=== PATIENT | female | born 1940 ===

== ENCOUNTER 2017-11-15 10:16 | Emergency (ER) | payer BC, MEDICARE ==
[2017-11-15] MEDS ORDERED: Sodium Chloride 0.9% 1,000 ML IV ONE (11:31)
[2017-11-15 11:59] LABS: BASO # 0.1 K/uL (0.0-0.2); BASO % 1.1 % (0.0-2.0); EOS # 0.2 K/uL (0.0-0.7); EOS % 3.5 % (0.0-4.0); HEMOGLOBIN 10.2 g/dL (11.0-16.0); LYMPH # 1.4 K/uL (1.0-4.3); LYMPH % 22.9 % (20.0-40.0); MEAN CELL VOLUME 86.8 fL (81.0-99.0); MEAN CORPUSCULAR HEMOGLOBIN 29.2 pg (27.0-31.0); MEAN CORPUSCULAR HGB CONC 33.6 g/dL (33.0-37.0); MEAN PLATELET VOLUME 9.7 fL (7.2-11.7); MONO # 0.7 K/uL (0.0-0.8); MONO % 12.4 % (0.0-10.0); NEUT # 3.6 K/uL (1.8-7.0); NEUT % 60.1 % (50.0-75.0); RBC 3.51 Mil/uL (3.80-5.20); RED CELL DISTRIBUTION WIDTH 14.3 % (11.5-14.5); WHITE BLOOD COUNT 5.9 K/uL (4.8-10.8)
[2017-11-15 12:16] LABS: ALB/GLOB RATIO 1.7 (1.0-2.1); ALBUMIN 4.4 g/dL (3.5-5.0); CALCIUM 9.5 mg/dl (8.6-10.4)
--- NOTE | 2017-11-15 12:18 | RAD ---
Date of service: 11/15/2017 HISTORY: pain COMPARISON: 08/05/2017 FINDINGS: BOWEL: Normal. No obstruction. No free air. There is a calcification in the left upper quadrant of the abdomen that does not appear to pertain to the left kidney but is more laterally situated. Possible calcified splenic granuloma. No change from prior. BONES: Normal. OTHER FINDINGS: None. IMPRESSION: No active disease.
[2017-11-15 12:34] LABS: SQUAMOUS EPITHIAL 3 /hpf (0-5); URINE BILIRUBIN 1+ (NEGATIVE); URINE BLOOD NEGATIVE (NEGATIVE); URINE CLARITY Clear (Clear); URINE COLOR Yellow (YELLOW); URINE GLUCOSE (UA) NORMAL (Normal); URINE LEUKOCYTE ESTERASE 2+ Leu/uL (Negative); URINE PROTEIN NEGATIVE (NEGATIVE)
[2017-11-15] MEDS ORDERED: Sodium Chloride 0.9% 1,000 ML ONE ×2 (12:54→13:34)
[2017-11-15] MEDS ORDERED: Magnesium Hydroxide Susp 30 ml UD PO ONE (13:02)
--- NOTE | 2017-11-15 13:02 | C.PDOC ---
History Of Present Illness 77-year-old female, presents to the emergency department for evaluation of diffuse abdominal cramping pain intermittent for the past 5-6 days. Pain is associated with constipation and nausea. Pt also admits, discomfort on urination for past few days. Otherwise, pt denies change in appetite, fever, chills, recent illness or abx use, CP, SOB, dyspnea, diaphoresis, palpitation, vomiting, melene, hematoschezia, denies back pain. Ambulate to Ed for evaluation , not in any apparent distress. Time Seen by Provider: 11/15/17 11:17 Chief Complaint (Nursing): Abdominal Pain History Per: Patient History/Exam Limitations: no limitations Onset/Duration Of Symptoms: Days (5) Current Symptoms Are (Timing): Still Present Severity: Moderate Location Of Pain/Discomfort: Diffuse Associated Symptoms: Nausea, Constipation Past Medical History Reviewed: Historical Data, Nursing Documentation, Vital Signs Vital Signs: Last Vital Signs Temp 98.6 F 11/15/17 14:52 Pulse 52 L 11/15/17 14:52 Resp 20 11/15/17 14:52 BP 134/74 11/15/17 14:52 Pulse Ox 98 11/15/17 14:52 - Medical History PMH: HTN, Hypercholesterolemia, Osteoporosis Surgical History: Coronary Stent (angioplasty) Family History: States: No Known Family Hx - Social History Hx Tobacco Use: No Hx Alcohol Use: No Hx Substance Use: No - Immunization History Hx Tetanus Toxoid Vaccination: No Hx Influenza Vaccination: Yes Hx Pneumococcal Vaccination: Yes Review Of Systems Constitutional: Negative for: Fever, Chills Gastrointestinal: Positive for: Nausea, Abdominal Pain, Constipation. Negative for: Vomiting, Diarrhea Genitourinary: Negative for: Dysuria, Frequency Musculoskeletal: Negative for: Back Pain Neurological: Negative for: Weakness, Headache, Dizziness Physical Exam - Physical Exam Appears: Well, Non-toxic, No Acute Distress Skin: Normal Color, Warm, Dry Head: Atraumatic, Normacephalic Eye(s): bilateral: PERRL Nose: No Flaring Oral Mucosa: Moist Lips: Normal Appearing Throat: No Erythema, No Drooling Neck: Normal ROM, Trachea Midline, Supple Chest: Symmetrical Cardiovascular: Rhythm Regular, No Murmur, No JVD Respiratory: No Accessory Muscle Use, No Stridor, No Wheezing Gastrointestinal/Abdominal: Bowel Sounds (normal), Soft, Tenderness (Mild Suprapubic), No Distention, No Guarding, No Rebound Back: No CVA Tenderness Extremity: Normal ROM, No Pedal Edema, No Deformity Neurological/Psych: Oriented x3, Normal Speech ED Course And Treatment - Laboratory Results Result Diagrams: 11/15/17 11:54 11/15/17 11:54 Lab Interpretation: No Changes Compared To Prior Results O2 Sat by Pulse Oximetry: 100 Pulse Ox Interpretation: Normal - Other Rad Abd xray X-Ray: Read By Radiologist Interpretation: pprover : DR. Cedillo, Moy GALLARDO. Approver2 : Report Date : 11/15/2017 12:16:38. My Comment : . Date of service: 11/15/2017. HISTORY : pain. COMPARISON: 08/05/2017. FINDINGS: BOWEL: Normal. No obstruction. No free air. There is a calcification in the left upper quadrant of the abdomen that does not appear to pertain to the left kidney but is more laterally situated. Possible calcified splenic granuloma. No change from prior. BONES: Normal. OTHER FINDINGS: None. IMPRESSION: No active disease. Progress Note: Pt was OBS in Ed for 5 hours and remained stable. Pt reports, " fells better" after ED treatment. AFter ED tx, pt was able to have BM with large amount of watery stool. Afebrile, hemodynamicaly stable. Non-toxic. Tolerate Po wel floyd ED. neck: Supple, (-) JVD, (-) carotid bruits B/L. Lungs: CTA B/L, BS equal B/L. CVS: (+)S1S2, reg. ABd: benign, (-) guaridng, (-) rebound, (-) localize dtenderness. back: (-) CVA tenderness. Neuorlogicaly intact. Blood work review and appears stable compare to previous ED visits, no new acute changes. Abd xray review (-) air-fluid level, no acute pathology. UA review and c/w UTI. Case discussed, results review with pt's PMD Dr. Galvan , discharge with outpt f/u recommend at this time. Results review with pt as well. Pt understand and agrees with plan, stable for discharge now. Disposition Counseled Patient/Family Regarding: Studies Performed, Diagnosis, Need For Followup, Rx Given - Disposition Referrals: Asif Perkins MD [Medical Doctor] - Disposition: HOME/ ROUTINE Disposition Time: 14:55 Condition: STABLE Additional Instructions: Encourage fluids Fiber-full diet take medication as prescribed Follow up with PMD, GI in 2-3 days for re-evaluation. return to Ed if any worsening or new changes. Prescriptions: Cefpodoxime [Vantin] 400 mg PO BID #28 tab Polyethylene Glycol 3350 [Miralax] 17 gm PO DAILY #1 bottle Instructions: Urinary Tract Infections in Adults, Constipation, Adult (DC) Forms: [facility] (Slovak) - Clinical Impression Clinical Impression: Abdominal pain, Constipation, UTI (urinary tract infection) - Scribe Statement The provider has reviewed the documentation as recorded by the Scribe (Luanne Denney) All medical record entries made by the Scribe were at my direction and personally dictated by me. I have reviewed the chart and agree that the record accurately reflects my personal performance of the history, physical exam, medical decision making, and the department course for this patient. I have also personally directed, reviewed, and agree with the discharge instructions and disposition.
[2017-11-15] MEDS ORDERED: Magnesium Hydroxide Susp 30 ml UD ONE (13:29)
[2017-11-15] MEDS ORDERED: cefTRIAXone IV 1 gm in Dextros 50 ML IVPB ONE (13:39)
[2017-11-15 14:54] VITALS: RESP 20
[2017-11-15 15:49] VITALS: BP 165/80; PULSE 54; TEMP 98.8; O2SAT 95
== END 2017-11-15 16:22 | disposition home or self-care (01) ==
LOC: C.ER 10:16
DX: K59.00 Constipation, unspecified (principal); N39.0 Urinary tract infection, site not specified; R10.9 Unspecified abdominal pain
CPT/HCPCS: 74019; 80053; 81001; 83690; 85025; 87086; 87181; 96361; 96365; 96375; 99285; J0696; J2405; J7030

== ENCOUNTER 2018-01-04 07:16 | Day surgery (SDC) | payer BC, MEDICARE ==
[2017-12-31 11:09] VITALS: BMI 26.5
[2018-01-04] MEDS ORDERED: Lactated Ringer's 500 ML IV ONE (09:10)
--- NOTE | 2018-01-04 09:11 | CP.SDSHP ---
Same Day Surgery H & P - History Proposed Procedure: colonoscopy Pre-Op Diagnosis: h/o colon polyps - Previous Medical/Surgical History Cardiac: Hypertension, ASHD/CAD, Other (hyperlipidemia) Misc: Other (SLE, Osteoporosis, Colon polyps, diverticulitis) Previous Surgical History: PTCA with stent-2007. R shoulder surgery - Allergies Allergies: Allergies aspirin Adverse Reaction (Severe, Verified 01/04/18 08:06) VOMITING - Physical Exam Vital Signs: Vital Signs 01/04/18 08:00 Temperature 97.8 F Pulse Rate 54 L Respiratory 19 Rate Blood Pressure 151/71 H O2 Sat by Pulse 99 Oximetry Mental Status: Alert & Oriented x3 Neuro: WNL Heart: WNL Lungs: WNL GI: WNL - Impression Impression: h/o colon polyps Pt. Evaluated Today:Candidate for Anesthesia & Procedure: Yes - Date & Time Date: 01/04/18 Time: 09:11 Short Stay Discharge - Short Stay Discharge Admitting Diagnosis/Reason for Visit: ABDOMINAL DISTENSION HX COLONIC POLYPS CHRONIC ISC Disposition: HOME/ ROUTINE
[2018-01-04] MEDS ORDERED: Propofol 10 mg/ml Inj (20 ML) ONE ×2 (09:17)
[2018-01-04 09:53] VITALS: TEMP 97
[2018-01-04 10:19] VITALS: O2SAT 99
[2018-01-04 10:50] VITALS: BP 187/81; PULSE 51; RESP 16
== END 2018-01-04 10:45 | disposition home or self-care (01) ==
LOC: C.ENDO 07:16
PROVIDERS: ATTEND Internal Medicine Gastroenterology
DX: R14.0 Abdominal distension (gaseous) (principal); Z86.010 Personal history of colon polyps; I25.9 Chronic ischemic heart disease, unspecified; E78.5 Hyperlipidemia, unspecified; I10 Essential (primary) hypertension; I25.10 Atherosclerotic heart disease of native coronary artery without angina pectoris; M32.9 Systemic lupus erythematosus, unspecified; M81.0 Age-related osteoporosis without current pathological fracture; Z95.5 Presence of coronary angioplasty implant and graft; K57.30 Diverticulosis of large intestine without perforation or abscess without bleeding; K64.1 Second degree hemorrhoids
CPT/HCPCS: 45378; J2001; J2704; J7040; J7120